=== PATIENT | male | born 1990 | race Caucasian/White ===

== ENCOUNTER 2024-10-17 09:28 | Outpatient (CLI) | payer OTHER, SELFPAY | END 2024-10-17 09:29 | disposition home or self-care (01) | LOC: ANHAUDIO 09:30 | PROVIDERS: PCP Student in an Organized Health Care Education/Training Program; Visit Provider Student in an Organized Health Care Education/Training Program | DX: H91.93 Unspecified hearing loss, bilateral (principal); H93.12 Tinnitus, left ear | CPT/HCPCS: 92557; 92567 ==

== ENCOUNTER 2024-11-19 18:52 | Emergency (ER) | payer OTHER, SELFPAY ==
[2024-11-19 18:52] VITALS: BP 144/87; PULSE 62; RESP 16; TEMP 36.4; O2SAT 99
[2024-11-19 19:12] LABS: Basophils Absolute Auto 0.1 K/mm3 (0.0-0.1); Basophils Percent Auto 0.8 % (0.2-1.2); Eosinophils Percent Auto 0.5 % (0-4.4); Hematocrit 44.2 % (42.0-52.0); Hemoglobin 15.1 g/dL (14.0-18.0); Immature Granulocyte Absolute 0.04 K/mm3 (0.00-0.031); Immature Granulocyte Percent A 0.5 % (0-0.5); Lymphocytes Absolute Auto 2.78 K/mm3 (0.9-3.2); Lymphocytes Percent Auto 35.5 % (18.3-44.2); Mean Corpuscular HGB Conc 34.2 g/dl (32-36); Mean Corpuscular Hemoglobin 30.6 pg (26-34); Mean Corpuscular Volume 89.5 fl (80-100); Mean Platelet Volume 10.8 fl (7.4-10.4); Monocytes Absolute Auto 0.5 K/mm3 (0.1-0.6); Monocytes Percent Auto 5.9 % (2.6-8.5); Neutrophils Absolute Auto 4.5 K/mm3 (1.3-6.7); Neutrophils Percent Auto 56.8 % (45.5-73.1); Platelet Count Result 247 k/mm3 (150-375); Red Blood Count 4.94 M/mm3 (4.6-6.20); Red Cell Distribution Width 12.6 % (11.5-14.5); White Blood Count 7.8 K/mm3 (4.5-10.0)
[2024-11-19 19:16] LABS: Add Urine Microscopic? NO; Appearance Urine Clear (Clear); Bilirubin Urine Negative (Negative); Blood Urine Negative (Negative); Color Urine Yellow (Yellow); Glucose Urine UA Negative (Negative); Ketones Urine Negative (Negative); Leukocyte Esterase Ur Negative LEU/UL (Negative); Nitrate Urine Negative (Negative); Protein Urine Negative (Negative); Specific Grav Ur 1.009 (1.001-1.035); Urobilinogen Urine 0.2 mg/dL (<2.0); pH Urine 5.5 (5.0-9.0)
[2024-11-19 19:24] LABS: Alanine Aminotransferase 25 U/L (6-50); Albumin Level 4.8 g/dL (3.5-5.1); Alkaline Phosphatase 60 U/L (38-126); Anion Gap 15 mmol/L (4-12); Aspartate Amino Transferase 27 U/L (17-59); Bilirubin,Total 0.6 mg/dL (0.2-1.3); Blood Urea Nitrogen 13 mg/dL (9-20); Calcium 9.2 mg/dL (8.4-10.2); Carbon Dioxide 23 mmol/L (22-30); Chloride 104 mmol/L (98-107); Estimated CRCL calculation 117 ml/min; Estimated Glomerular Filt Rate > 60; Glucose 122 mg/dL (65-110); Sodium 142 mmol/L (137-145)
[2024-11-19 19:25] LABS: Ethanol < 10 mg/dL (<10)
--- NOTE | 2024-11-19 19:30 | ED_ITS ---
HPI - General Adult General Chief complaint: Psychiatric Symptoms Stated complaint: Suicidal Time Seen by Provider: 11/19/24 19:06 History of Present Illness HPI narrative: Patient is a 34-year-old male who presents to the emergency department this evening with concerns for suicidal ideations. Patient states that he is undergoing a lot of stress lately, was recently laid off of work and has an 8-month-old child at home. Patient states that he has been having some thoughts of not wanting to be alive anymore. Denies any active plan. Denies any previous history of mental illness or previous psychiatric hospitalizations. Patient states that he has struggled with some anxiety and depression in the past but it is usually associated with life stressors. 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 Patient's was concerned and wanted some measures taken MANDIE. Patient does not take any medications and denies any drug or alcohol abuse and admits that he has not had anything to drink today. Related Data Allergies Allergy/AdvReac Type Severity Reaction Status Date / Time No Known Allergies Allergy Verified 11/19/24 19:02 Review of Systems 2 Review of Systems: All systems are reviewed and are negative unless stated otherwise in the HPI. [facility] Social History Social History Substance use type: does not use Exam 2 Narrative: General: Alert, awake, afebrile, in no acute distress. HEENT: PERRL, no rhinorrhea, no post nasal drip, oropharynx clear. Neck: Trachea midline, no JVD, no lymphadenopathy. Cardiovascular: Regular rate and rhythm, no murmurs, rubs or gallops, no peripheral edema. Respiratory: Clear to auscultation bilaterally, no tachypnea, no wheezing, no rhonchi, no rubs, no respiratory distress. Abdomen: Soft, nontender, nondistended, no rebound, no guarding, no peritoneal signs. Musculoskeletal: No joint swelling or deformity, normal muscle tone. Skin: No rashes or petechia, no signs of infection. Psychiatric: Alert and oriented, normal behavior and judgment for situation. Neurological: Alert and oriented to person, place, and time. Follows all commands. No focal deficits, speech is clear and fluent. Course Vital Signs Vital signs: Vital Signs Temperature 97.6 F 11/19/24 18:52 Pulse Rate 62 11/19/24 18:52 Respiratory Rate 16 11/19/24 18:52 Blood Pressure 144/87 H 11/19/24 18:52 Pulse Oximetry 99 11/19/24 18:52 Oxygen Delivery Room Air 11/19/24 18:52 Temperature 97.6 F 11/19/24 18:52 Pulse Rate 62 11/19/24 18:52 Respiratory Rate 16 11/19/24 18:52 Blood Pressure 144/87 H 11/19/24 18:52 Pulse Oximetry 99 11/19/24 18:52 Oxygen Delivery Room Air 11/19/24 18:52 Medical Decision Making MDM Narrative Medical decision making narrative: The patient was evaluated by myself in the emergency department. History is obtained from patient who is an independent historian and physical exam was performed. External medical records were reviewed at this time. IV was established and pertinent tests were ordered. Laboratory results obtained revealing no acute process. Urinalysis unremarkable, urine drug screen negative. Differential diagnosis considerations include acute stress reaction, depression, anxiety. Comorbidities impacting this visit include none. I have evaluated and discussed social determinants of health with the patient that could potentially impact subsequent diagnosis and treatment plans. Patient was evaluated by our psychiatric team and they recommend discharge with outpatient treatment. Patient is agreeable with this. On repeat assessment of the patient, reevaluation revealed that the patient is doing well and is in no acute distress. Patient symptoms have improved since he arrived to our emergency department. Repeat vital signs were all reviewed and noted to be stable. Differential diagnosis and treatment plan were discussed with the patient at bedside. Patient agrees with discussion and after shared medical decision making agrees with discharge. All questions were answered to the patient's satisfaction. Patient will follow up with his PCP in 3-5 days along with the mental health resources provided to him today. Patient was provided with strict return precautions and instructed to return to the emergency department if any new or worsening symptoms develop. The patient was discharged in stable condition. Vital Signs Vital Signs: Vital Signs Temperature 97.6 F 11/19/24 18:52 Pulse Rate 62 11/19/24 18:52 Respiratory Rate 16 11/19/24 18:52 Blood Pressure 144/87 H 11/19/24 18:52 Pulse Oximetry 99 11/19/24 18:52 Oxygen Delivery Room Air 11/19/24 18:52 Temperature 97.6 F 11/19/24 18:52 Pulse Rate 62 11/19/24 18:52 Respiratory Rate 16 11/19/24 18:52 Blood Pressure 144/87 H 11/19/24 18:52 Pulse Oximetry 99 11/19/24 18:52 Oxygen Delivery Room Air 11/19/24 18:52 Lab Data 11/19/24 19:03 11/19/24 19:03 Labs: Lab Results 11/19/24 11/19/24 Range/Units 19:03 19:07 WBC 7.8 (4.5-10.0) K/mm3 RBC 4.94 (4.6-6.20) M/mm3 Hgb 15.1 (14.0-18.0) g/dL Hct 44.2 (42.0-52.0) % MCV 89.5 (80-100) fl MCH 30.6 (26-34) pg MCHC 34.2 (32-36) g/dl RDW 12.6 (11.5-14.5) % Plt Count 247 (150-375) k/mm3 MPV 10.8 H (7.4-10.4) fl Immature Gran % (Auto) 0.5 (0-0.5) % Neut % (Auto) 56.8 (45.5-73.1) % Lymph % (Auto) 35.5 (18.3-44.2) % [place] % (Auto) 5.9 (2.6-8.5) % Eos % (Auto) 0.5 (0-4.4) % Baso % (Auto) 0.8 (0.2-1.2) % Lymph # (Auto) 2.78 (0.9-3.2) K/mm3 [place] # (Auto) 0.5 (0.1-0.6) K/mm3 Eos # (Auto) 0.0 (0-0.3) K/mm3 Baso # (Auto) 0.1 (0.0-0.1) K/mm3 Abs Immat Gran (auto) 0.04 H (0.00-0.031) K/mm3 Absolute Neuts (auto) 4.5 (1.3-6.7) K/mm3 Absolute Nucleated RBC 0.000 (0.0-0.012) K/mm3 Nucleated RBC % 0.0 (0.0-0.2) % Sodium 142 (137-145) mmol/L Potassium 4.0 (3.4-5.0) mmol/L Chloride 104 (98-107) mmol/L Carbon Dioxide 23 (22-30) mmol/L Anion Gap 15 H (4-12) mmol/L BUN 13 (9-20) mg/dL Creatinine 0.79 (0.7-1.3) mg/dL Estim Creat Clear Calc 117 ml/min Estimated GFR > 60 (59 - ) Glucose 122 H (65-110) mg/dL Calcium 9.2 (8.4-10.2) mg/dL Total Bilirubin 0.6 (0.2-1.3) mg/dL AST 27 (17-59) U/L ALT 25 (6-50) U/L Alkaline Phosphatase 60 (38-126) U/L Total Protein 8.0 (6.3-8.2) g/dL Albumin 4.8 (3.5-5.1) g/dL TSH (Reflex) 2.850 (0.465-4.68) uIU/mL Urine Color Yellow (Yellow) Urine Appearance Clear (Clear) Urine pH 5.5 (5.0-9.0) Ur Specific [place] 1.009 (1.001-1.035) Urine Protein Negative (Negative) mg/dL Urine Glucose (UA) Negative (Negative) mg/dL Urine Ketones Negative (Negative) mg/dL Ur Blood (Man) Negative (Negative) Urine Nitrate Negative (Negative) Urine Bilirubin Negative (Negative) Urine Urobilinogen 0.2 (<2.0) mg/dL Leukocyte Esterase Rfl Negative (Negative) MICHELLE/UL Salicylates < 1.0 L (2-20) mg/dL Urine Opiates Screen Negative (Negative) Urine Methadone Screen Negative (Negative) Acetaminophen < 10 L (10-30) ug/mL Ur Barbiturates Screen Negative (Negative) Ur Phencyclidine Scrn Negative (Negative) Ur Amphetamine Screen Negative (Negative) U Benzodiazepines Scrn Negative (Negative) Urine Cocaine Screen Negative (Negative) U Cannabinoids Screen Negative (Negative) Ethyl Alcohol < 10 (<10) mg/dL Influenza A (RT-PCR) Negative (Negative) Influenza B (RT-PCR) Negative (Negative) RSV (RT-PCR) Negative (Negative) SARS-CoV-2 RNA (RT-PCR) Negative (Negative) Discharge Plan Discharge Clinical Impression: Depression Patient Disposition: Home, Self-Care Condition: Improved Instructions: Antibiotic Form, Depression (ED), Help Prevent Suicide (ED) Additional Instructions: Please follow-up with your family doctor within the next 3-5 days. Use the mental health resources provided to you today in the emergency department. Return to the emergency department if any new or worsening symptoms develop. Patient Language: [place] Follow-up/Referrals: Katie,DO Kevyn [Primary Care Provider] - 3 Days Time of Disposition: 21:09
[2024-11-19 19:40] LABS: Amphetamine Screen Urine Negative (Negative); Barbiturate Screen Urine Negative (Negative); Benzodiazepines Screen Urine Negative (Negative); Cannabinoid Screen Urine Negative (Negative); Cocaine Screen Urine Negative (Negative); Methadone Screen Urine Negative (Negative); Opiate Screen Urine Negative (Negative); Phencyclidine Screen Urine Negative (Negative)
[2024-11-19 19:48] LABS: Influenza A QL RT-PCR Negative (Negative); Influenza B QL RT-PCR Negative (Negative); RSV RNA, RT-PCR Negative (Negative); SARS-CoV-2 RNA PCR Negative (Negative)
[2024-11-19 19:57] LABS: Acetaminophen < 10 ug/mL (10-30); Salicylate < 1.0 mg/dL (2-20)
== END 2024-11-19 22:12 | disposition home or self-care (01) ==
PROVIDERS: Preventive Medicine Aerospace Medicine; Emergency Provider Emergency Medicine; PCP Student in an Organized Health Care Education/Training Program
DX: F32.A Depression, unspecified (principal); Z20.822 Contact with and (suspected) exposure to COVID-19
CPT/HCPCS: 36415; 80053; 80143; 80179; 80307; 81003; 82077; 84443; 85025; 87637; 99284